=== PATIENT | female | born 1980 | race Caucasian/White ===

== ENCOUNTER 2016-07-17 15:47 | Inpatient (IN) | payer MEDICAID ==
[~2016-07-17] VITALS: Ht 172.7 cm; Wt 114.8 kg
[~2016-07-17 15:47] MED LIST: ALBU8HFA4 IH; DIVA500T52 PO; DIVA500T69 PO; FERR-89 PO; MULT-248 PO; OMEP20 PO; RISP3 PO; SIMV-260 PO
[2016-07-17 20:04] VITALS: BP 92/68
[2016-07-17 20:52] VITALS: BP 121/69
[2016-07-17] MEDS ORDERED: PNEUMOCOCCAL VACCINE POLYVALENT 0.5 ML VIAL [PPSV23] IM ONE (21:30)
[2016-07-18 05:21] VITALS: BP 126/74
[2016-07-18] MEDS: NICOTINE 14 MG/24 HOUR PATCH TD SCH (08:09)
[2016-07-18] MEDS: HALOPERIDOL 5 MG TABLET PO PRN ×2 (08:09→16:09)
[2016-07-18] MEDS: LORazepam 2 MG TABLET PO PRN ×2 (08:09→16:09)
[2016-07-18 08:56] LABS: BASOPHILS # (AUTO) 0.05 K/uL (0.00-0.20); BASOPHILS % (AUTO) 0.9 % (0.0-2.0); EOSINOPHILS # (AUTO) 0.11 K/uL (0.00-0.70); EOSINOPHILS % (AUTO) 1.95 % (1.0-6.0); HEMATOCRIT 36.9 % (36-46); HEMOGLOBIN 12.1 g/dL (12.0-16.0); LYMPHOCYTES # (AUTO) 2.4 K/uL (1.0-4.8); LYMPHOCYTES % (AUTO) 40.3 % (22.0-44.0); MEAN CORPUSCULAR HGB CONC 32.9 G/dL (31.0-37.0); MEAN CORPUSCULAR VOLUME 91 fL (80-100); MONOCYTES # (AUTO) 0.6 K/uL (0.1-1.0); MONOCYTES % (AUTO) 9.9 % (2.0-9.0); NEUTROPHILS # (AUTO) 2.8 K/uL (1.8-7.7); NEUTROPHILS % (AUTO) 46.9 % (40.0-70.0); PLATELET COUNT (AUTO) 321 K/uL (150-450); RED BLOOD CELL COUNT(AUTO) 4.05 MIL/uL (4.00-5.20); RED CELL DISTRIBUTION WIDTH 13.9 % (11.5-14.5); WHITE BLOOD COUNT (AUTO) 5.9 K/uL (4.5-11.0)
[2016-07-18 09:20] LABS: ALANINE AMINOTRANSFERASE 40 U/L (12-78); ALBUMIN 3.3 g/dL (3.4-5.0); ANION GAP 8 mmol/L (8-16); ASPARTATE AMINOTRANSFERASE 35 U/L (15-37); BILIRUBIN,TOTAL 0.2 mg/dL (0.1-1.0); CALCIUM, TOTAL 8.6 mg/dL (8.8-10.5); CARBON DIOXIDE 29 mmol/L (22-29); CHLORIDE 104 mmol/L (98-107); GLOMERULAR FILTR. RATE CALC > 60 mL/min (>60); POTASSIUM 3.4 mmol/L (3.5-5.1); SODIUM SERUM 141 mmol/L (136-145); TOTAL PROTEIN, SERUM 6.5 g/dL (6.4-8.2); UREA NITROGEN, BLOOD 8 mg/dL (7-18)
[2016-07-18] MEDS ORDERED: POTASSIUM CHLORIDE 20 MEQ ER TABLET PO ONE (10:30)
[2016-07-18] MEDS ORDERED: LORazepam 2 MG/ML VIAL ONE (16:07)
[2016-07-18] MEDS ORDERED: DiphenhydrAMINE HCL 50 MG/ML VIAL ONE (16:07)
[2016-07-18] MEDS ORDERED: HALOPERIDOL LACTATE 5 MG/ML VIAL ONE (16:09)
[2016-07-18 16:30] VITALS: BP 126/82
[2016-07-18] MEDS: RisperiDONE 2 MG TABLET PO SCH (17:00)
[2016-07-18] MEDS: BENZTROPINE MESYLATE 0.5 MG TABLET PO SCH (17:00)
[2016-07-18] MEDS: ZOLPIDEM TARTRATE 10 MG TABLET PO PRN (21:03)
[2016-07-19 01:38] VITALS: BP 117/73
[2016-07-19] MEDS: HALOPERIDOL 5 MG TABLET PO PRN ×3 (01:39→16:25)
[2016-07-19] MEDS: LORazepam 2 MG TABLET PO PRN ×4 (01:39→20:47)
[2016-07-19 07:43] LABS: ALANINE AMINOTRANSFERASE 40 U/L (12-78); ALBUMIN 3.2 g/dL (3.4-5.0); ANION GAP 8 mmol/L (8-16); ASPARTATE AMINOTRANSFERASE 28 U/L (15-37); BILIRUBIN,TOTAL 0.2 mg/dL (0.1-1.0); CALCIUM, TOTAL 8.8 mg/dL (8.8-10.5); CARBON DIOXIDE 28 mmol/L (22-29); CHLORIDE 103 mmol/L (98-107); CREATININE 0.79 mg/dL (0.60-1.30); GLOMERULAR FILTR. RATE CALC > 60 mL/min (>60); POTASSIUM 3.7 mmol/L (3.5-5.1); SODIUM SERUM 139 mmol/L (136-145); TOTAL PROTEIN, SERUM 6.5 g/dL (6.4-8.2); UREA NITROGEN, BLOOD 8 mg/dL (7-18)
[2016-07-19] MEDS: NICOTINE 14 MG/24 HOUR PATCH TD SCH (08:08)
[2016-07-19] MEDS: RisperiDONE 2 MG TABLET PO SCH ×2 (08:08→16:25)
[2016-07-19] MEDS: BENZTROPINE MESYLATE 0.5 MG TABLET PO SCH ×2 (08:08→16:25)
[2016-07-19 08:33] VITALS: BP 126/73
[2016-07-19 16:26] VITALS: BP 132/89
[2016-07-19] MEDS: ZOLPIDEM TARTRATE 10 MG TABLET PO PRN (21:06)
[2016-07-19] MEDS ORDERED: ACETAMINOPHEN 325 MG TABLET PO PRN (22:00)
[2016-07-19] MEDS ORDERED: IBUPROFEN 400 MG TABLET PO PRN (22:00)
[2016-07-20] MEDS: FERROUS SULFATE 325 MG EC TABLET PO SCH ×3 (06:32→16:29)
[2016-07-20 08:30] VITALS: BP 115/72
[2016-07-20] MEDS ORDERED: OMEPRAZOLE 20 MG CAPSULE PO SCH (09:00)
[2016-07-20] MEDS ORDERED: MULTIVITAMINS WITH MINERALS, THERAPEUTIC TABLET PO SCH (09:00)
[2016-07-20] MEDS ORDERED: SIMVASTATIN 20 MG TABLET PO SCH (09:00)
[2016-07-20] MEDS: ALBUTEROL SULFATE HFA 90 MCG/PUFF 8 GM INHALER IH SCH ×2 (09:32→16:29)
[2016-07-20] MEDS: BENZTROPINE MESYLATE 0.5 MG TABLET PO SCH ×2 (09:32→16:29)
[2016-07-20] MEDS: RisperiDONE 2 MG TABLET PO SCH ×2 (09:32→16:29)
[2016-07-20] MEDS: NICOTINE 14 MG/24 HOUR PATCH TD SCH (09:32)
[2016-07-20] MEDS: LORazepam 2 MG TABLET PO PRN ×2 (09:33→13:43)
[2016-07-20] MEDS: HALOPERIDOL 5 MG TABLET PO PRN ×2 (09:33→13:43)
[2016-07-20] MEDS ORDERED: MAG HYDROX/AL HYDROX/SIMETH ES 30 ML SUSPENSION UDCUP PO PRN (14:45)
[2016-07-20 16:07] VITALS: BP 145/99
[2016-07-20] MEDS ORDERED: BENZ0.5T6 PO (19:01)
== END 2016-07-20 19:30 | disposition home or self-care (01) | DRG 751 ==
LOC: B3A 20:12 → EDSTATUS 20:14 → B3A 21:01
PROVIDERS: ADMIT Psychiatry & Neurology Psychiatry; ATTEND Psychiatry & Neurology Psychiatry
DX: F29 Unspecified psychosis not due to a substance or known physiological condition (principal); J44.9 Chronic obstructive pulmonary disease, unspecified; F20.0 Paranoid schizophrenia; E78.5 Hyperlipidemia, unspecified; K21.9 Gastro-esophageal reflux disease without esophagitis; F19.10 Other psychoactive substance abuse, uncomplicated; E87.6 Hypokalemia; J45.909 Unspecified asthma, uncomplicated; D64.9 Anemia, unspecified; F15.90 Other stimulant use, unspecified, uncomplicated; Z81.8 Family history of other mental and behavioral disorders; Z88.8 Allergy status to other drugs, medicaments and biological substances; Z72.89 Other problems related to lifestyle; Z59.0 Homelessness; Z28.21 Immunization not carried out because of patient refusal; Z79.899 Other long term (current) drug therapy
CPT/HCPCS: J1200; J1630; J2060; J3535